=== PATIENT | female | born 1970 | race American Indian/Alaskan Native ===

== ENCOUNTER 2020-10-24 12:48 | Emergency (ER) | payer SELFPAY ==
[2020-10-24 13:27] VITALS: BP 162/90
--- NOTE | 2020-10-24 14:19 | Emergency Department Report ---
- General Chief complaint: Chest Pain Stated complaint: CHEST PAINS Time Seen by Provider: 10/24/20 14:04 Source: patient Mode of arrival: Ambulatory Limitations: No Limitations - Related Data Allergies Allergy/AdvReac Type Severity Reaction Status Date / Time No Known Allergies Allergy Unverified 10/24/20 13:26 [facility] Chief Complaint: Chest Pain Stated Complaint: CHEST PAINS Time Seen by Provider: 10/24/20 14:04 Allergies/Adverse Reactions: Allergies Allergy/AdvReac Type Severity Reaction Status Date / Time No Known Allergies Allergy Unverified 10/24/20 13:26 ED Review of Systems ROS: Stated complaint: CHEST PAINS Other details as noted in HPI ED Past Medical Hx - Past Medical History Previous Medical History?: Yes Hx Diabetes: Yes ED Physical Exam - General Limitations: No Limitations ED Course Vital Signs 10/24/20 13:27 Temperature 98.6 F Pulse Rate 83 Respiratory 18 Rate Blood Pressure 162/90 [Right] O2 Sat by Pulse 99 Oximetry Critical care attestation.: If time is entered above; I have spent that time in minutes in the direct care of this critically ill patient, excluding procedure time. ED Disposition Condition: Stable
--- NOTE | 2020-10-24 15:38 | Event Note ---
ED Screening Note Date of service: 10/24/20 Time: 15:33 ED Screening Note: Patient presents to the ER today with complaints of burn to her right chest. Patient states that her job recently started recommended that he wear this disinfectant type package hanging around the neck which is called pure O2 Pack- solid disinfectant and deodorizer. She states that it seems to be when hanging outside of the clothing but this past Saturday it got inside her clothing against her chest and she did not realize it for a few hours. She states that she thinks she may have gotten burned from it because she noticed a burn chicho to right chest yesterday. She also complains of dry cough, hoarse voice, shortness of breath and chest tightness since yesterday. She does not recall any apparent ill contacts or recent travel. She states that the disinfecting that she has around her neck is not typically have a strong odor that would irritate her lung. She denies any fever or chills. Past medical history significant for diabetes. She denies any significant past history This initial assessment/diagnostic orders/clinical plan/treatment(s) is/are subject to change based on patients health status, clinical progression and re- assessment by fellow clinical providers in the ED. Further treatment and workup at subsequent clinical providers discretion. Patient/guardian urged not to elope from the ED as their condition may be serious if not clinically assessed and managed. Initial orders include: Chest x-ray
--- NOTE | 2020-10-24 15:58 | XRay Report ---
XR chest routine 2V INDICATION / CLINICAL INFORMATION: cough/chest tightness/hoarse voice COMPARISON: None available. FINDINGS: SUPPORT DEVICES: None. HEART / MEDIASTINUM: No significant abnormality. LUNGS / PLEURA: Lungs are clear. Costophrenic sulci are sharp. No pneumothorax. ADDITIONAL FINDINGS: No significant additional findings. IMPRESSION: 1. No acute findings. Signer Name: Osbaldo Mcclure MD Signed: 10/24/2020 3:54 PM Workstation Name: [id number]
--- NOTE | 2020-10-24 16:37 | Emergency Department Report ---
ED General Adult HPI - General Chief complaint: Chest Pain Stated complaint: CHEST PAINS Time Seen by Provider: 10/24/20 14:04 Source: patient Mode of arrival: Ambulatory Limitations: No Limitations - History of Present Illness Initial comments: 49-year-old female patient with history of diabetes presents to emergency department with complaints of right sided chest pain, cough, and hoarseness starting yesterday. Patient noticed a burn to the right side of her chest yesterday. The pain in her chest is not localized to the area of the burn. Patient states that her job recently started recommended that he wear this disinfectant type package hanging around the neck which is called pure O2 Pack- solid disinfectant and deodorizer. She states that it seems to be when hanging outside of the clothing but this past Saturday it got inside her clothing against her chest and she did not realize it for a few hours. She also complains of dry cough, hoarse voice, shortness of breath and chest tightness since yesterday. She does not recall any apparent ill contacts or recent travel. She states that the disinfecting that she has around her neck is not typically have a strong odor that would irritate her lung. Denies fever, chills, hemoptysis, wheezing, sore throat, ear pain, neck stiffness, syncope. Denies other complaints at this time. - Related Data Previous Rx's Medication Instructions Recorded Last Taken Type Bacitracin Zinc/Polymyxin B 14 gm TP TID #1 oint...g. 10/24/20 Unknown Rx [Double Antibiotic Ointment] Benzonatate [Tessalon Perles] 200 mg PO Q8HR #30 capsule 10/24/20 Unknown Rx Hydrocortisone [Hydrocortisone 28.35 gm TP BID #1 oint...g. 10/24/20 Unknown Rx 2.5% OINT] Allergies Allergy/AdvReac Type Severity Reaction Status Date / Time No Known Allergies Allergy Unverified 10/24/20 13:26 ED Review of Systems ROS: Stated complaint: CHEST PAINS Other details as noted in HPI Other: GENERAL: Negative for fever, chills, weight change, anorexia, fatigue. ENT: Positive for hoarseness. CARDIOVASCULAR: Positive for chest pain. PULMONARY: Positive for cough, shortness of breath. GASTROINTESTINAL: Negative for abdominal pain, nausea, vomiting, diarrhea, co nstipation. MUSCULOSKELETAL: Negative for joint pain, joint swelling, myalgias, back pain, neck pain. NEUROLOGICAL: Negative for headache, seizure, syncope, paresthesias, weakness. INTEGUMENTARY: Positive for burn. HEMATOLOGICAL: Negative for hemoptysis, hematemesis, hematochezia, hematuria. PSYCHIATRIC: Negative for hallucinations, suicidal ideation, homicidal ideation, anxiety, depression. ED Past Medical Hx - Past Medical History Previous Medical History?: Yes Hx Diabetes: Yes - Medications Home Medications: Home Medications Medication Instructions Recorded Confirmed Last Taken Type Bacitracin Zinc/Polymyxin B 14 gm TP TID #1 oint...g. 10/24/20 Unknown Rx [Double Antibiotic Ointment] Benzonatate [Tessalon Perles] 200 mg PO Q8HR #30 capsule 10/24/20 Unknown Rx Hydrocortisone [Hydrocortisone 28.35 gm TP BID #1 oint...g. 10/24/20 Unknown Rx 2.5% OINT] ED Physical Exam - General Limitations: No Limitations - Other Other exam information: General: Awake and alert. No acute distress. Head: Atraumatic, normocephalic. Eyes: EOMI. Pupils are equal and round. Normal sclera and conjunctiva. ENT: Oral mucosa is moist. Normal pharyngeal exam. Neck: Supple. No lymphadenopathy. Pulmonary: No respiratory distress. Clear to auscultation bilaterally. Cardiac: Regular rate and rhythm. Pulses are palpable and equal bilaterally. No lower extremity cyanosis or edema. Skin: Superficial chemical burn noted to the anterior right chest wall, approximately 2 cm x 2 cm, without evidence of surrounding cellulitis. No nec rosis. No purulent drainage. Abdomen: Soft, non-tender, non-protuberant. No guarding, rigidity, or rebound. Bowel sounds are normal. No organomegaly or masses noted. Back: Normal alignment. No CVA tenderness. Extremities: Symmetrical. Full range of motion intact. Neurological: Alert and oriented, appropriately interactive, no focal deficits. Psych: Cooperative. Appropriate mood and affect. Speech is evenly metered. Thoughts are logically construed. ED Course Vital Signs 10/24/20 13:27 Temperature 98.6 F Pulse Rate 83 Respiratory 18 Rate Blood Pressure 162/90 [Right] O2 Sat by Pulse 99 Oximetry ED Medical Decision Making - EKG Data 10/24/20 17:01 EKG shows normal sinus rhythm with a ventricular rate of 78 bpm. Normal axis. Normal [place] interval. Normal QT interval. Good R wave progression. No ST segment changes. Over read by attending emergency physician, who agrees with this interpretation. - Medical Decision Making Differential diagnosis including but not limited to: chemical pneumonitis, thermal burn, contact dermatitis, necrotizing soft tissue infection, acute coronary syndrome On reevaluation, patient remains stable. Vitals within normal limits. EKG obtained due to patient's reported complaint of right-sided chest pain; normal sinus rhythm, no acute injury pattern, very low clinical suspicion for acute coronary syndrome. Patient has nonproductive cough and hoarseness on exam. Chest x-ray is unremarkable. Patient will be treated with topical steroids/antibiotics for superficial chemical burn as well as Tessalon for symptomatic relief of presumed viral upper respiratory infection. Systemically corticoids will be avoided due to patient's history of diabetes. Emphasized the importance of refraining from continued exposure to offending agent. Patient expressed understanding and is agreeable to plan of care. Disease transmission precautions discussed. Strict return precautions provided. Repeat exam is unremarkable and benign. History, exam, diagnostic testing, and current condition do not suggest worrisome pathology to warrant further testing, continued ED treatment, admission, or surgical evaluation at this point. Given the low probability of a significant medical illness, it would be more likely to result in harm than benefit to perform further testing at this stage. Discussed findings, presumptive diagnosis, need for follow-up and specific signs/symptoms that should prompt immediate return to the emergency department. Instructions were explained in detail to the patient in addition to giving written discharge information. Patient expressed understanding and was given the opportunity to ask questions, all of which were satisfactorily answered prior to discharge home. Critical care attestation.: If time is entered above; I have spent that time in minutes in the direct care of this critically ill patient, excluding procedure time. ED Disposition Clinical Impression: Chemical burn, Viral upper respiratory tract infection with cough Disposition: TO HOME OR SELFCARE Is pt being admited?: No Does the pt Need Aspirin: No Condition: Stable Instructions: Upper Respiratory Infection, Adult, [id number], Chemical Burn, Adult Additional Instructions: Take Tylenol every 4 hours and Motrin every 8 hours as needed for pain. Apply antibiotic ointment and topical steroid to affected area as directed. Keep wound clean and covered. Keep medications in the refrigerator for added symptomatic relief. Take Tessalon as needed for cough. Rest. Drink plenty fluids. Follow-up with your primary care provider this week. Call tomorrow to schedule an appointment. Return to the emergency department immediately for new or worsening symptoms. Prescriptions: Bacitracin Zinc/Polymyxin B [Double Antibiotic Ointment] 14 gm TP TID #1 oint...g. Hydrocortisone [Hydrocortisone 2.5% OINT] 28.35 gm TP BID #1 oint...g. Benzonatate [Tessalon Perles] 200 mg PO Q8HR #30 capsule Referrals: MARIA INES CARDENAS MD [Staff Physician] - 3-5 Days Time of Disposition: 17:04
--- NOTE | 2020-10-27 10:33 | Electrocardiograph Report ---
[facility] Test Date: 2020-10-24 Test Time: 13:05:10 Pat Name: OTTO JEAN-BAPTISTE Department: Room: Gender: F [employer] Work[employer]: : 1970 Requested By: ELIZABETH SIMON Order Number: [id number] Reading MD: Ezequiel Rivas Measurements Intervals [place] Rate: 78 P: 52 NC: 139 QRS: 66 QRSD: 74 T: 31 QT: 393 QTc: 448 Interpretive Statements Sinus rhythm No previous ECG available for comparison Electronically Signed On 10-27-2020 10:33:13 EDT by Ezequiel Rivas
== END 2020-10-24 17:05 | disposition home or self-care (01) ==
LOC: ED 12:48
DX: J06.9 Acute upper respiratory infection, unspecified (principal); E11.9 Type 2 diabetes mellitus without complications; Z79.899 Other long term (current) drug therapy; T30.4 Corrosion of unspecified body region, unspecified degree
CPT/HCPCS: 71046; 93005; 99283

== ENCOUNTER 2021-04-17 12:32 | Emergency (ER) | payer SELFPAY ==
[2021-04-17 14:12] LABS: Basophils % (Auto) 0.8 % (0.0-1.8); Eosinophils # (Auto) 0.1 K/mm3 (0.0-0.4); Hematocrit 45.1 % (30.3-42.9); Hemoglobin 15.4 gm/dl (10.1-14.3); Lymphocytes # (Auto) 2.3 K/mm3 (1.2-5.4); Mean Corpuscular HGB Conc 34 % (30-34); Mean Corpuscular Volume 90 fl (79-97); Monocytes # (Auto) 0.3 K/mm3 (0.0-0.8); Monocytes % (Auto) 5.2 % (0.0-7.3); Platelet Count 247 K/mm3 (140-440); Red Blood Count 4.98 M/mm3 (3.65-5.03); Red Cell Distribution Width 13.1 % (13.2-15.2)
[2021-04-17 14:18] LABS: Alanine Aminotransferase 34 units/L (7-56); Albumin 4.2 g/dL (3.9-5); Blood Urea Nitrogen 10 mg/dL (7-17); Calcium 9.8 mg/dL (8.4-10.2); Hemolysis Index 11
[2021-04-17 14:19] LABS: BUN/Creatinine Ratio 20
[2021-04-17 15:10] LABS: Bilirubin,Urine NEG (Negative); Blood,Urine NEG (Negative); Color,Urine Yellow (Yellow); Mucus,Urine FEW /HPF; Protein,Urine <15 mg/dL mg/dL (Negative); Urobilinogen,Urine < 2.0 mg/dL (<2.0)
--- NOTE | 2021-04-17 15:25 | Emergency Department Report ---
ED General Adult HPI - General Chief complaint: Headache Stated complaint: BLURRED VISION,HEADACHE,SHARP PAINS Time Seen by Provider: 04/17/21 13:28 Source: patient Mode of arrival: Ambulatory Limitations: No Limitations - History of Present Illness Initial comments: Patient is a 50-year-old female presents emergency room with complaints of complications from her diabetes. Patient states that she has type 2 diabetes. She states that she only takes 500 mg of Metformin once a day. Patient has not seen a primary care doctor in almost a year. She has associated urinary frequency, headache, mild blurry vision, [id number] sensation in her bila teral feet. She denies any fever, nausea, vomiting, diarrhea, chest pain, shortness of breath, abdominal pain. No other past medical history. No allergies to medications. Patient has not had an eye exam. - Related Data Previous Rx's Medication Instructions Recorded Last Taken Type Bacitracin Zinc/Polymyxin B 14 gm TP TID #1 oint...g. 10/24/20 Unknown Rx [Double Antibiotic Ointment] Benzonatate [Tessalon Perles] 200 mg PO Q8HR #30 capsule 10/24/20 Unknown Rx Hydrocortisone [Hydrocortisone 28.35 gm TP BID #1 oint...g. 10/24/20 Unknown Rx 2.5% OINT] Gabapentin 100 mg PO Q8HR #21 capsule 04/17/21 Unknown Rx metFORMIN [Glucophage] 500 mg PO BID #60 tablet 04/17/21 Unknown Rx Allergies Allergy/AdvReac Type Severity Reaction Status Date / Time No Known Allergies Allergy Unverified 10/24/20 13:26 ED Review of Systems ROS: Stated complaint: BLURRED VISION,HEADACHE,SHARP PAINS Other details as noted in HPI Comment: All other systems reviewed and negative ED Past Medical Hx - Past Medical History Previous Medical History?: Yes Hx Diabetes: Yes - Surgical History Past Surgical History?: No - Medications Home Medications: Home Medications Medication Instructions Recorded Confirmed Last Taken Type Bacitracin Zinc/Polymyxin B 14 gm TP TID #1 oint...g. 10/24/20 Unknown Rx [Double Antibiotic Ointment] Benzonatate [Tessalon Perles] 200 mg PO Q8HR #30 capsule 10/24/20 Unknown Rx Hydrocortisone [Hydrocortisone 28.35 gm TP BID #1 oint...g. 10/24/20 Unknown Rx 2.5% OINT] Gabapentin 100 mg PO Q8HR #21 capsule 04/17/21 Unknown Rx metFORMIN [Glucophage] 500 mg PO BID #60 tablet 04/17/21 Unknown Rx ED Physical Exam - General Limitations: No Limitations General appearance: alert, in no apparent distress - Head Head exam: Present: atraumatic, normocephalic - Eye Eye exam: Present: normal appearance, PERRL, EOMI. Absent: periorbital swelling , periorbital tenderness - ENT ENT exam: Present: mucous membranes moist - Respiratory Respiratory exam: Present: normal lung sounds bilaterally. Absent: respiratory distress, wheezes, rales, rhonchi, stridor, chest wall tenderness, accessory muscle use, decreased breath sounds, prolonged expiratory - Cardiovascular Cardiovascular Exam: Present: regular rate, normal rhythm, normal heart sounds. Absent: systolic murmur, diastolic murmur, rubs, gallop - Neurological Exam Neurological exam: Present: alert, oriented X3 - Psychiatric Psychiatric exam: Present: normal affect, normal mood - Skin Skin exam: Present: warm, dry, intact, other (no ulcerations of the feet) ED Course Vital Signs 04/17/21 04/17/21 13:20 16:05 Temperature 997.8 F H 98.3 F Pulse Rate 77 71 Respiratory 16 16 Rate Blood Pressure 170/93 159/94 [Left] O2 Sat by Pulse 99 98 Oximetry ED Medical Decision Making - Lab Data Result diagrams: 04/17/21 13:33 04/17/21 13:33 Lab Results 04/17/21 04/17/21 04/17/21 Range/Units 13:33 13:33 13:33 WBC 5.4 (4.5-11.0) K/mm3 RBC 4.98 (3.65-5.03) M/mm3 Hgb 15.4 H (10.1-14.3) gm/dl Hct 45.1 H (30.3-42.9) % MCV 90 (79-97) fl MCH 31 (28-32) pg MCHC 34 (30-34) % RDW 13.1 L (13.2-15.2) % Plt Count 247 (140-440) K/mm3 Lymph % (Auto) 43.0 H (13.4-35.0) % [place] % (Auto) 5.2 (0.0-7.3) % Eos % (Auto) 2.0 (0.0-4.3) % Baso % (Auto) 0.8 (0.0-1.8) % Lymph # (Auto) 2.3 (1.2-5.4) K/mm3 [place] # (Auto) 0.3 (0.0-0.8) K/mm3 Eos # (Auto) 0.1 (0.0-0.4) K/mm3 Baso # (Auto) 0.0 (0.0-0.1) K/mm3 Seg Neutrophils % 49.0 (40.0-70.0) % Seg Neutrophils # 2.7 (1.8-7.7) K/mm3 VBG pH 7.344 (7.320-7.420) Sodium 134 L (137-145) mmol/L Potassium 3.9 (3.6-5.0) mmol/L Chloride 96.8 L (98-107) mmol/L Carbon Dioxide 24 (22-30) mmol/L Anion Gap 17 mmol/L BUN 10 (7-17) mg/dL Creatinine 0.5 L (0.6-1.2) mg/dL Estimated GFR > 60 ml/min BUN/Creatinine Ratio 20 % Glucose 278 H (65-100) mg/dL Calcium 9.8 (8.4-10.2) mg/dL Total Bilirubin 0.70 (0.1-1.2) mg/dL AST 27 (5-40) units/L ALT 34 (7-56) units/L Alkaline Phosphatase 83 (35-129) units/L Total Protein 8.2 (6.3-8.2) g/dL Albumin 4.2 (3.9-5) g/dL Albumin/Globulin Ratio 1.1 % Urine Color (Yellow) Urine Turbidity (Clear) Urine pH (5.0-7.0) Ur Specific [place] (1.003-1.030) Urine Protein (Negative) mg/dL Urine Glucose (UA) (Negative) mg/dL Urine Ketones (Negative) mg/dL Urine Blood (Negative) Urine Nitrite (Negative) Urine Bilirubin (Negative) Urine Urobilinogen (<2.0) mg/dL Ur Leukocyte Esterase (Negative) Urine WBC (Auto) (0.0-6.0) /HPF Urine RBC (Auto) (0.0-6.0) /HPF U Epithel Cells (Auto) (0-13.0) /HPF Urine Mucus /HPF 04/17/21 Range/Units 13:54 WBC (4.5-11.0) K/mm3 RBC (3.65-5.03) M/mm3 Hgb (10.1-14.3) gm/dl Hct (30.3-42.9) % MCV (79-97) fl MCH (28-32) pg MCHC (30-34) % RDW (13.2-15.2) % Plt Count (140-440) K/mm3 Lymph % (Auto) (13.4-35.0) % [place] % (Auto) (0.0-7.3) % Eos % (Auto) (0.0-4.3) % Baso % (Auto) (0.0-1.8) % Lymph # (Auto) (1.2-5.4) K/mm3 [place] # (Auto) (0.0-0.8) K/mm3 Eos # (Auto) (0.0-0.4) K/mm3 Baso # (Auto) (0.0-0.1) K/mm3 Seg Neutrophils % (40.0-70.0) % Seg Neutrophils # (1.8-7.7) K/mm3 VBG pH (7.320-7.420) Sodium (137-145) mmol/L Potassium (3.6-5.0) mmol/L Chloride (98-107) mmol/L Carbon Dioxide (22-30) mmol/L Anion Gap mmol/L BUN (7-17) mg/dL Creatinine (0.6-1.2) mg/dL Estimated GFR ml/min BUN/Creatinine Ratio % Glucose (65-100) mg/dL Calcium (8.4-10.2) mg/dL Total Bilirubin (0.1-1.2) mg/dL AST (5-40) units/L ALT (7-56) units/L Alkaline Phosphatase (35-129) units/L Total Protein (6.3-8.2) g/dL Albumin (3.9-5) g/dL Albumin/Globulin Ratio % Urine Color Yellow (Yellow) Urine Turbidity Slightly-cloudy (Clear) Urine pH 5.0 (5.0-7.0) Ur Specific [place] 1.021 (1.003-1.030) Urine Protein <15 mg/dl (Negative) mg/dL Urine Glucose (UA) 50 (Negative) mg/dL Urine Ketones Neg (Negative) mg/dL Urine Blood Neg (Negative) Urine Nitrite Neg (Negative) Urine Bilirubin Neg (Negative) Urine Urobilinogen < 2.0 (<2.0) mg/dL Ur Leukocyte Esterase Neg (Negative) Urine WBC (Auto) 7.0 H (0.0-6.0) /HPF Urine RBC (Auto) 5.0 (0.0-6.0) /HPF U Epithel Cells (Auto) 5.0 (0-13.0) /HPF Urine Mucus Few /HPF Vital Signs - 24 hr 04/17/21 04/17/21 13:20 16:05 Temperature 997.8 F H 98.3 F Pulse Rate 77 71 Respiratory 16 16 Rate Blood Pressure 170/93 159/94 [Left] O2 Sat by Pulse 99 98 Oximetry - Medical Decision Making Patient is a 50-year-old female presents emergency room with complaints of complications from her diabetes. Patient states that she has type 2 diabetes. She states that she only takes 500 mg of Metformin once a day. Patient has not seen a primary care doctor in almost a year. She has associated urinary frequency, headache, mild blurry vision, zbll-vgz-guqvptf sensation in her bilateral feet. She denies any fever, nausea, vomiting, diarrhea, chest pain, shortness of breath, abdominal pain. No other past medical history. No allergies to medications. Patient has not had an eye exam. Initial vitals were entered incorrectly, had nurse repeat vitals and vitals are stable. Labs with hyperglycemia up to 78. No signs of DKA. UA stable. Will increase patient's Metformin to 500 mg twice daily. She states her sugars have been running high at home from 200-400 and reports that she has been compliant with the Metformin 500 mg once a day. Patient has no visual disturbance on exam, she states that just feels mildly blurry, patient will be referred to [facility] to have eye exam, advised patient that given she has diabetes she needs yearly eye examinations. Discussed the importance of outpatient primary care follow-up for management of her chronic condition. Patient given prescription for gabapentin as a pins and needle sensation likely related to neuropathy in the feet, she has no signs of ulceration or infection at this time. Advised patient Please take medication as prescribed. I am going to increase your Metformin to 500 mg twice a day. You need to have an eye examination performed yearly due to diabetes. Please make sure you follow-up with a primary care doctor and car [facility]. Return to emergency room for any new or worsening symptoms. Please eat a low sugar/low sodium diet. Increase your water intake. Incor porate 30 to 60 minutes of daily exercise. Keep a blood pressure log and take this to the primary care doctor. Critical care attestation.: If time is entered above; I have spent that time in minutes in the direct care of this critically ill patient, excluding procedure time. ED Disposition Clinical Impression: Hyperglycemia, Elevated blood pressure reading, Blurred vision, Tingling of both feet Disposition: 01 HOME / SELF CARE / HOMELESS Is pt being admited?: No Does the pt Need Aspirin: No Condition: Stable Instructions: Preventing Type 2 Diabetes Mellitus, Peripheral Neuropathy Additional Instructions: Please take medication as prescribed. I am going to increase your Metformin to 500 mg twice a day. You need to have an eye examination performed yearly due to diabetes. Please make sure you follow-up with a primary care doctor and car [facility]. Return to emergency room for any new or worsening symptoms. Please eat a low sugar/low sodium diet. Increase your water intake. Incorporate 30 to 60 minutes of daily exercise. Keep a blood pressure log and take this to the primary care doctor. Prescriptions: Gabapentin 100 mg PO Q8HR #21 capsule metFORMIN [Glucophage] 500 mg PO BID #60 tablet Referrals: MARIA INES CARDENAS MD [Staff Physician] - 3-5 Days [facility] [Provider Group] - 3-5 Days [facility] [Outside] - 3-5 Days [facility] [Outside] - 3-5 Days [facility] [Provider Group] - 3-5 Days Forms: Work/School Release Form(ED) Time of Disposition: 15:24 Print Language: BARBADIAN
[2021-04-17 16:06] VITALS: BP 159/94
== END 2021-04-17 16:09 | disposition home or self-care (01) ==
LOC: ED 12:32
DX: E11.65 Type 2 diabetes mellitus with hyperglycemia (principal); R03.0 Elevated blood-pressure reading, without diagnosis of hypertension; H53.8 Other visual disturbances; R20.0 Anesthesia of skin; Z79.899 Other long term (current) drug therapy
CPT/HCPCS: 36415; 80053; 81001; 82805; 85025; 87086; 99283

== ENCOUNTER 2021-07-02 18:52 | Emergency (ER) | payer SELFPAY ==
[2021-07-02 20:12] VITALS: BP 136/91
== END 2021-07-02 21:23 | disposition left against medical advice (07) ==
LOC: ED 18:52
DX: Z04.1 Encounter for examination and observation following transport accident (principal); Z53.21 Procedure and treatment not carried out due to patient leaving prior to being seen by health care provider; V89.2XXA Person injured in unspecified motor-vehicle accident, traffic, initial encounter; Y93.89 Activity, other specified; Y92.89 Other specified places as the place of occurrence of the external cause; Y99.8 Other external cause status